=== PATIENT | male | born 1990 | race Caucasian/White ===

== ENCOUNTER 2018-07-29 04:47 | Inpatient (IN) | payer OTHER ==
[2018-07-29] MEDS ORDERED: SODIUM CHLORIDE 0.9% 1,000 ML IV STA ×2 (04:48→04:56)
--- NOTE | 2018-07-29 04:49 | ED ---
Overdose HPI - General Stated Complaint: overdose Time Seen by Provider: 07/29/18 04:48 - History of Present Illness Initial Comments: Adonis Is a 28-year-old male who presents to the emergency department today via EMS for evaluation of possible overdose and possible seizure. On initial arrival the patient is confused, unable to provide any significant history. Patient's girlfriend at bedside states that his mother gave him a bottle of pills and advised them that it was similar to Motrin. Patient was complaining of a toothache so he took a few of these, she is uncertain how many he took but he reported taking a handful. Girlfriend reports that during the night she noted that he was shaking, she states that he has a history of nightmares and tends to move a lot of sleep so she didn't think much of it. She reports that she then noticed that he felt very hot was again shaking, she tried taking them but couldn't wake him up. She was concerned he may be having a seizure. She reports that he then woke and sat but fell off in the bed striking his face on the door frame. She then called 911 with concern that he had been seizing. She was able to provide EMS personnel with the bottle of pills which she had been taking which turned out to be extended release bupropion 150 mg. - Related Data Allergies Allergy/AdvReac Type Severity Reaction Status Date / Time No Known Allergies Allergy Verified 07/29/18 05:23 Review of Systems ROS Statement: Those systems with pertinent positive or pertinent negative responses have been documented in the HPI. ROS Other: All systems not noted in ROS Statement are negative. Limitations: ROS unobtainable due to patients medical condition General Exam - General Exam Comments Initial Comments: GENERAL: Patient appears postictal, is confused, laceration to the nose, blood in the oropharynx HENT: Laceration to nasal bridge Poor dentition, evidence of tongue biting, dried blood in the oropharynx EYES: Pupils equal round reactive to light, 5 mm bilaterally PULMONARY: Tachypnea CARDIOVASCULAR: Tachycardic regular ABDOMEN: Soft and nontender with normal bowel sounds. SKIN: Skin is clear with no lesions or rashes and otherwise unremarkable. NEUROLOGIC: Confused, tonic clinic seizure activity noted upon arrival MUSCULOSKELETAL: Normal extremities with adequate strength and full range of motion. No lower extremity swelling or edema. No calf tenderness. LYMPHATICS: No significant lymphadenopathy is noted PSYCHIATRIC: Normal psychiatric evaluation. Limitations: no limitations Course Vital Signs 07/29/18 07/29/18 05:04 05:56 Temperature 97.8 F Pulse Rate 133 H 128 H Respiratory 24 20 Rate Blood Pressure 142/64 120/58 O2 Sat by Pulse 96 99 Oximetry Medical Decision Making - Medical Decision Making The patient was seen and evaluated upon arrival, patient is confused, appears postictal, physical exam consistent with seizure with tongue biting, in addition patient has a laceration to his face and sent for Wellbutrin overdose Patient had tonic clonic seizure upon arrival, seizure lasted approximately 30 seconds and resolved IV ativan was given to prevent further seizure activity Labs and imaging were ordered Considering the patient has facial injury CT of the head and face were ordered Patient has a laceration, uncertain of his history, tetanus vaccination was ordered Labs were reviewed, leukocytosis, lactic acidosis consistent with recent seizure Patient care was discussed with poison control who recommended electrolyte optimization, every 4 hour EKG and BMPs, benzos for seizures patient care was discussed with Dr. Matthews and who agrees with plan for admission to the ICU for close monitoring Patient care was discussed with Dr. Frances who accepts the medical admission - Lab Data Result diagrams: 07/29/18 05:00 07/29/18 05:00 Lab Results 07/29/18 07/29/18 07/29/18 Range/Units 05:00 05:00 05:00 WBC 17.9 H (3.8-10.6) k/uL RBC 5.37 (4.30-5.90) m/uL Hgb 15.3 (13.0-17.5) gm/dL Hct 47.5 (39.0-53.0) % MCV 88.5 (80.0-100.0) fL MCH 28.4 (25.0-35.0) pg MCHC 32.1 (31.0-37.0) g/dL RDW 12.6 (11.5-15.5) % Plt Count 316 (150-450) k/uL Neutrophils % 75 % Lymphocytes % 15 % Monocytes % 6 % Eosinophils % 1 % Basophils % 1 % Neutrophils # 13.4 H (1.3-7.7) k/uL Lymphocytes # 2.7 (1.0-4.8) k/uL Monocytes # 1.1 H (0-1.0) k/uL Eosinophils # 0.3 (0-0.7) k/uL Basophils # 0.1 (0-0.2) k/uL PT 10.5 (9.0-12.0) sec INR 1.1 (<1.2) APTT 22.6 (22.0-30.0) sec Sodium 145 (137-145) mmol/L Potassium 3.9 (3.5-5.1) mmol/L Chloride 109 H (98-107) mmol/L Carbon Dioxide 12 L (22-30) mmol/L Anion Gap 24 mmol/L BUN 17 (9-20) mg/dL Creatinine 1.21 (0.66-1.25) mg/dL Est GFR (CKD-EPI)AfAm >90 (>60 ml/min/1.73 sqM) Est GFR (CKD-EPI)NonAf 81 (>60 ml/min/1.73 sqM) Glucose 122 H (74-99) mg/dL Plasma Lactic Acid [place] (0.7-2.0) mmol/L Calcium 9.7 (8.4-10.2) mg/dL Magnesium (1.6-2.3) mg/dL Total Bilirubin 0.5 (0.2-1.3) mg/dL AST 35 (17-59) U/L ALT 30 (21-72) U/L Alkaline Phosphatase 62 (38-126) U/L Creatine Kinase (55-170) U/L Troponin I (0.000-0.034) ng/mL Total Protein 7.6 (6.3-8.2) g/dL Albumin 4.7 (3.5-5.0) g/dL Urine Color Urine Appearance (Clear) Urine pH (5.0-8.0) Ur Specific [place] (1.001-1.035) Urine Protein (Negative) Urine Glucose (UA) (Negative) Urine Ketones (Negative) Urine Blood (Negative) Urine Nitrite (Negative) Urine Bilirubin (Negative) Urine Urobilinogen (<2.0) mg/dL Ur Leukocyte Esterase (Negative) Salicylates <1.0 mg/dL Urine Opiates Screen (NotDetected) Ur Oxycodone Screen (NotDetected) Urine Methadone Screen (NotDetected) Ur Propoxyphene Screen (NotDetected) Acetaminophen <10.0 ug/mL Ur Barbiturates Screen (NotDetected) U Tricyclic Antidepress (NotDetected) Ur Phencyclidine Scrn (NotDetected) Ur Amphetamines Screen (NotDetected) U Methamphetamines Scrn (NotDetected) U Benzodiazepines Scrn (NotDetected) Urine Cocaine Screen (NotDetected) U Marijuana (THC) Screen (NotDetected) Serum Alcohol <10 mg/dL 07/29/18 07/29/18 07/29/18 Range/Units 05:00 05:00 05:00 WBC (3.8-10.6) k/uL RBC (4.30-5.90) m/uL Hgb (13.0-17.5) gm/dL Hct (39.0-53.0) % MCV (80.0-100.0) fL MCH (25.0-35.0) pg MCHC (31.0-37.0) g/dL RDW (11.5-15.5) % Plt Count (150-450) k/uL Neutrophils % % Lymphocytes % % Monocytes % % Eosinophils % % Basophils % % Neutrophils # (1.3-7.7) k/uL Lymphocytes # (1.0-4.8) k/uL Monocytes # (0-1.0) k/uL Eosinophils # (0-0.7) k/uL Basophils # (0-0.2) k/uL PT (9.0-12.0) sec INR (<1.2) APTT (22.0-30.0) sec Sodium (137-145) mmol/L Potassium (3.5-5.1) mmol/L Chloride (98-107) mmol/L Carbon Dioxide (22-30) mmol/L Anion Gap mmol/L BUN (9-20) mg/dL Creatinine (0.66-1.25) mg/dL Est GFR (CKD-EPI)AfAm (>60 ml/min/1.73 sqM) Est GFR (CKD-EPI)NonAf (>60 ml/min/1.73 sqM) Glucose (74-99) mg/dL Plasma Lactic Acid [place] 13.9 H* (0.7-2.0) mmol/L Calcium (8.4-10.2) mg/dL Magnesium 2.0 (1.6-2.3) mg/dL Total Bilirubin (0.2-1.3) mg/dL AST (17-59) U/L ALT (21-72) U/L Alkaline Phosphatase (38-126) U/L Creatine Kinase 401 H (55-170) U/L Troponin I <0.012 (0.000-0.034) ng/mL Total Protein (6.3-8.2) g/dL Albumin (3.5-5.0) g/dL Urine Color Urine Appearance (Clear) Urine pH (5.0-8.0) Ur Specific [place] (1.001-1.035) Urine Protein (Negative) Urine Glucose (UA) (Negative) Urine Ketones (Negative) Urine Blood (Negative) Urine Nitrite (Negative) Urine Bilirubin (Negative) Urine Urobilinogen (<2.0) mg/dL Ur Leukocyte Esterase (Negative) Salicylates mg/dL Urine Opiates Screen (NotDetected) Ur Oxycodone Screen (NotDetected) Urine Methadone Screen (NotDetected) Ur Propoxyphene Screen (NotDetected) Acetaminophen ug/mL Ur Barbiturates Screen (NotDetected) U Tricyclic Antidepress (NotDetected) Ur Phencyclidine Scrn (NotDetected) Ur Amphetamines Screen (NotDetected) U Methamphetamines Scrn (NotDetected) U Benzodiazepines Scrn (NotDetected) Urine Cocaine Screen (NotDetected) U Marijuana (THC) Screen (NotDetected) Serum Alcohol mg/dL 07/29/18 07/29/18 Range/Units 05:30 05:30 WBC (3.8-10.6) k/uL RBC (4.30-5.90) m/uL Hgb (13.0-17.5) gm/dL Hct (39.0-53.0) % MCV (80.0-100.0) fL MCH (25.0-35.0) pg MCHC (31.0-37.0) g/dL RDW (11.5-15.5) % Plt Count (150-450) k/uL Neutrophils % % Lymphocytes % % Monocytes % % Eosinophils % % Basophils % % Neutrophils # (1.3-7.7) k/uL Lymphocytes # (1.0-4.8) k/uL Monocytes # (0-1.0) k/uL Eosinophils # (0-0.7) k/uL Basophils # (0-0.2) k/uL PT (9.0-12.0) sec INR (<1.2) APTT (22.0-30.0) sec Sodium (137-145) mmol/L Potassium (3.5-5.1) mmol/L Chloride (98-107) mmol/L Carbon Dioxide (22-30) mmol/L Anion Gap mmol/L BUN (9-20) mg/dL Creatinine (0.66-1.25) mg/dL Est GFR (CKD-EPI)AfAm (>60 ml/min/1.73 sqM) Est GFR (CKD-EPI)NonAf (>60 ml/min/1.73 sqM) Glucose (74-99) mg/dL Plasma Lactic Acid [place] (0.7-2.0) mmol/L Calcium (8.4-10.2) mg/dL Magnesium (1.6-2.3) mg/dL Total Bilirubin (0.2-1.3) mg/dL AST (17-59) U/L ALT (21-72) U/L Alkaline Phosphatase (38-126) U/L Creatine Kinase (55-170) U/L Troponin I (0.000-0.034) ng/mL Total Protein (6.3-8.2) g/dL Albumin (3.5-5.0) g/dL Urine Color Yellow Urine Appearance Clear (Clear) Urine pH 5.5 (5.0-8.0) Ur Specific [place] 1.020 (1.001-1.035) Urine Protein Trace H (Negative) Urine Glucose (UA) Negative (Negative) Urine Ketones Trace H (Negative) Urine Blood Negative (Negative) Urine Nitrite Negative (Negative) Urine Bilirubin Negative (Negative) Urine Urobilinogen <2.0 (<2.0) mg/dL Ur Leukocyte Esterase Negative (Negative) Salicylates mg/dL Urine Opiates Screen Not Detected (NotDetected) Ur Oxycodone Screen Not Detected (NotDetected) Urine Methadone Screen Not Detected (NotDetected) Ur Propoxyphene Screen Not Detected (NotDetected) Acetaminophen ug/mL Ur Barbiturates Screen Not Detected (NotDetected) U Tricyclic Antidepress Not Detected (NotDetected) Ur Phencyclidine Scrn Not Detected (NotDetected) Ur Amphetamines Screen Not Detected (NotDetected) U Methamphetamines Scrn Not Detected (NotDetected) U Benzodiazepines Scrn Not Detected (NotDetected) Urine Cocaine Screen Not Detected (NotDetected) U Marijuana (THC) Screen Not Detected (NotDetected) Serum Alcohol mg/dL - EKG Data EKG Comments: EKG obtained at 5 AM, rate is 151, rhythm is sinus tachycardia, ME 122, QRS 104 , QTC is prolonged at 538. No evidence of acute ischemia or infarction. Critical Care Time Critical Care Time: Yes Total Critical Care Time: 30 Critical Care Time: Critical Care Critical care time was exclusive of separately billable procedures and treating other patients and teaching time. Critical care was necessary to treat or prevent imminent or life-threatening deterioration. Critical care was time spent personally by me on the following activities: development of treatment plan with patient or surrogate, discussions with consultants, discussions with primary provider, evaluation of patient's response to treatment, examination of patient, obtaining history from patient or surrogate, ordering and performing treatments and interventions, ordering and review of laboratory studies, ordering and review of radiographic studies, pulse oximetry, re-evaluation of patient's condition and review of old charts. Disposition Clinical Impression: Bupropion overdose, Seizure, Lactic acidosis Disposition: ADMITTED IP TO THIS HOSP
[2018-07-29] MEDS ORDERED: DIPH,PERTUS(ACELL)TETVAC-LF 0.5 ML VIAL IM ONE (04:57)
[2018-07-29] MEDS ORDERED: LORazepam 2 MG/ML INJ IV STA (04:57)
[2018-07-29] MEDS ORDERED: ONDANSETRON 4 MG/2 ML VIAL IVP STA (05:06)
[2018-07-29 05:13] LABS: Basophils # (A) 0.1 k/uL (0-0.2); Basophils % (A) 1 %; Eosinophils # (A) 0.3 k/uL (0-0.7); Eosinophils % (A) 1 %; HCT 47.5 % (39.0-53.0); HGB 15.3 gm/dL (13.0-17.5); Lymphocytes # (A) 2.7 k/uL (1.0-4.8); Lymphocytes % (A) 15 %; MCH 28.4 pg (25.0-35.0); MCHC 32.1 g/dL (31.0-37.0); MCV 88.5 fL (80.0-100.0); Mean Platelet Volume 7.3; Monocytes # (A) 1.1 k/uL (0-1.0); Monocytes % (A) 6 %; Neutrophils # (A) 13.4 k/uL (1.3-7.7); Neutrophils % (A) 75 %; Platelet Count 316 k/uL (150-450); RBC 5.37 m/uL (4.30-5.90); RDW 12.6 % (11.5-15.5); WBC 17.9 k/uL (3.8-10.6)
[2018-07-29 05:22] LABS: INR 1.1 (<1.2); Partial Thromboplastin Time 22.6 sec (22.0-30.0); Prothrombin Time 10.5 sec (9.0-12.0)
[2018-07-29 05:24] LABS: ALT 30 U/L (21-72); AST 35 U/L (17-59); Acetaminophen <10.0 ug/mL; Albumin 4.7 g/dL (3.5-5.0); Alcohol <10 mg/dL; Alkaline Phosphatase 62 U/L (38-126); Anion Gap 24 mmol/L; Blood Urea Nitrogen 17 mg/dL (9-20); Calcium 9.7 mg/dL (8.4-10.2); Carbon Dioxide 12 mmol/L (22-30); Chloride 109 mmol/L (98-107); Glucose 122 mg/dL (74-99); Potassium 3.9 mmol/L (3.5-5.1); Salicylate <1.0 mg/dL; Sodium 145 mmol/L (137-145); Total Bilirubin 0.5 mg/dL (0.2-1.3); Total Protein 7.6 g/dL (6.3-8.2)
[2018-07-29 05:47] LABS: Amphetamine Screen,Urine Not Detected (NotDetected); Barbiturate Screen,Urine Not Detected (NotDetected); Benzodiazepines Screen,Urine Not Detected (NotDetected); Cocaine Screen,Urine Not Detected (NotDetected); Methadone Screen, Urine Not Detected (NotDetected); Opiate Screen,Urine Not Detected (NotDetected); Oxycodone Screen, Urine Not Detected (NotDetected); Phencyclidine Screen,Urine Not Detected (NotDetected); Tricyclic Antidepressant,Urine Not Detected (NotDetected); Urn Cannabinoid Scrn Not Detected (NotDetected)
--- NOTE | 2018-07-29 06:05 | CT ---
EXAMINATION TYPE: CT brain rianna zamora DATE OF EXAM: 07/29/2018 COMPARISON: None HISTORY: overdose CT DLP: 1615.5 mGycm Automated exposure control for dose reduction was used. TECHNIQUE: CT scan of the head and cervical spine are performed without contrast. FINDINGS: Ventricles and sulci appear normal. There is no mass effect nor midline shift. There is n o sign of intracranial hemorrhage. The calvarium is intact. There is mucosal thickening right maxilla ry sinus. The cervical vertebra have normal alignment. Posterior elements are intact. Facet joints are intact. Disc spaces are fairly well-maintained. There is no evidence of a fracture. Skull base is intact. The re is mild anterior spurring at C6-7. IMPRESSION: Negative CT scan of the brain. Minimal right maxillary sinusitis. Negative CT scan cervical spine.
--- NOTE | 2018-07-29 06:08 | CT ---
EXAMINATION TYPE: CT facial bones wo con DATE OF EXAM: 07/29/2018 COMPARISON: None HISTORY: overdose CT DLP: 704.9 mGycm Automated exposure control for dose reduction was used. TECHNIQUE: CT scan of the sinuses is performed without contrast, axial images are obtained, coronal r eformatted images are also reviewed. FINDINGS: Orbital margins are intact. There is no evidence of blowout fracture. There is mucosal thic kening in the right maxillary sinus. There is mucosal thickening at the right ostiomeatal complex. Th ere is pneumatization of the right middle nasal turbinate. The maxilla is intact. Mandibular ring felix ears intact. Temporomandibular joints appear normal. Zygomatic arches appear normal. Nasal bone is in tact. There is no evidence of orbital mass. IMPRESSION: Right maxillary sinusitis. Otherwise negative exam. No fracture.
[2018-07-29] MEDS ORDERED: NALOXONE 0.4 MG/ML 1 ML VIAL IV PRN (06:31)
[2018-07-29] MEDS: SODIUM CHLORIDE 0.9% 1,000 ML IV SCH ×3 (06:59→22:23)
[2018-07-29 07:00] LABS: Appearance,Urine Clear (Clear); Bilirubin,Urine Negative (Negative); Blood,Urine Negative (Negative); Color,Urine Yellow; Glucose,Urine (UA) Negative (Negative); Ketones,Urine Trace (Negative); Leukocyte Esterase,Urine Negative (Negative); Nitrite,Urine Negative (Negative); PH, Urine 5.5 (5.0-8.0); Protein,Urine Trace (Negative); Urobilinogen,Urine <2.0 mg/dL (<2.0)
[2018-07-29] MEDS ORDERED: LORazepam 2 MG/ML INJ IV PRN (07:23)
[2018-07-29 07:31] LABS: VBG PH 7.32 (7.31-7.41)
[2018-07-29 10:26] LABS: Anion Gap 8 mmol/L; Blood Urea Nitrogen 15 mg/dL (9-20); Calcium 8.3 mg/dL (8.4-10.2); Carbon Dioxide 22 mmol/L (22-30); Chloride 111 mmol/L (98-107); Glucose 107 mg/dL (74-99); Magnesium 1.8 mg/dL (1.6-2.3); Potassium 4.1 mmol/L (3.5-5.1); Sodium 141 mmol/L (137-145)
--- NOTE | 2018-07-29 12:15 | P.HPIM ---
History of Present Illness H&P Date: 07/29/18 Adonis Campbell is a 28-year-old male who was brought in to [facility] emergency room via EMS after having 2 seizures at home. Patient was seen and examined in the emergency room he is lying comfortably in bed, he has seizure precaution pads, he is able to answer questions appropriately however his speech is somewhat muffled. His significant other and his mother are at the bedside and they helped complete the history of the present illness. Apparently patient is having a tooth pain, he went to sleep last night at home, he woke up in the middle of the night complaining of severe pain in his stools, he'll reached for a bottle of medication which he thought was Motrin and took a fistful of pills. Patient started having episodes of vomiting and he was noticed by his girlfriend to have an episode of jerking movements that lasted about 1 minute. She called EMS and before EMS came patient had an alveolar episode of unresponsiveness with jerking movements lasting 1-2 minutes, he was brought into emergency room and apparently he had a third episode in the emergency room, the episode in the ER was described as a tonic-clonic seizure lasting about 30 seconds. In the emergency room patient was evaluated he was given IV Ativan he had evidence of tachycardia he also had QTC prolongation he had elevated white blood count and elevated lactic acid he was started on IV fluid he had episodes of confusion and muffled speech suggestive of post ictal. He also had evidence of tongue biting. Past medical history patient denies any significant past medical history, he denies having any seizures in the past he denies having any stroke or any neurological abnormality in the past, he works as a heavy duty mechanic. Social history patient lives with his girlfriend, he smokes half a pack to 1 pack per day, he used to smoke marijuana heavily, mother and states that he quit smoking marijuana about 6 weeks ago, he also used methamphetamine in the past. Past surgical history patient denies any previous history of any surgery in the past. Past Medical History Past Medical History: No Reported History, Unable to Obtain History of Any Multi-Drug Resistant Organisms: Unobtainable Past Surgical History: Unable to Obtain Past Psychological History: Unable to Obtain Smoking Status: Current every day smoker Past Alcohol Use History: Unable to Obtain, Occasional, Rare Past Drug Use History: Unable to Obtain, Marijuana, Methamphetamine Medications and Allergies Home Medications Medication Instructions Recorded Confirmed Type No Known Home Medications 07/29/18 07/29/18 History Allergies Allergy/AdvReac Type Severity Reaction Status Date / Time No Known Allergies Allergy Verified 07/29/18 10:34 Physical Exam Vitals: Vital Signs Temp Pulse Resp BP Pulse Ox 07/29/18 11:48 98.4 F 121 H 16 136/70 98 07/29/18 09:59 122 H 18 131/65 100 07/29/18 09:03 98.5 F 122 H 18 127/63 97 07/29/18 07:43 121 H 20 124/64 97 07/29/18 07:07 124 H 22 129/59 98 07/29/18 05:56 128 H 20 120/58 99 07/29/18 05:04 97.8 F 133 H 24 142/64 96 Intake and Output 07/28/18 07/29/18 07/29/18 22:59 06:59 14:59 Other: Weight 81.647 kg In general patient is alert slightly confused but answering questions appropriately his speech is somewhat muffled HEENT there is some bruising and laceration was scabbing on the nose Neck is supple no JVD no goiter no lymphadenopathy Chest exam is clear to auscultation no crackles no wheezing Cardiac exam reveals regular heart sounds S1 and S2 no gallops no murmurs there is tachycardia at rest heart rate is 125 Abdomen is soft nontender no organomegaly with normal bowel sounds Extremity exam reveals no edema no cyanosis or clubbing Neurological examination reveals no gross focal deficit at this time Results CBC & Chem 7: 07/29/18 05:00 07/29/18 09:57 Labs: Abnormal Lab Results - Last 24 Hours (Table) 07/29/18 07/29/18 07/29/18 Range/Units 05:00 05:00 05:00 WBC 17.9 H (3.8-10.6) k/uL Neutrophils # 13.4 H (1.3-7.7) k/uL Monocytes # 1.1 H (0-1.0) k/uL VBG HCO3 (24-28) mmol/L Chloride 109 H (98-107) mmol/L Carbon Dioxide 12 L (22-30) mmol/L Glucose 122 H (74-99) mg/dL Plasma Lactic Acid [place] 13.9 H* (0.7-2.0) mmol/L Calcium (8.4-10.2) mg/dL Creatine Kinase (55-170) U/L Urine Protein (Negative) Urine Ketones (Negative) 07/29/18 07/29/18 07/29/18 Range/Units 05:00 05:30 07:11 WBC (3.8-10.6) k/uL Neutrophils # (1.3-7.7) k/uL Monocytes # (0-1.0) k/uL VBG HCO3 21 L (24-28) mmol/L Chloride (98-107) mmol/L Carbon Dioxide (22-30) mmol/L Glucose (74-99) mg/dL Plasma Lactic Acid [place] (0.7-2.0) mmol/L Calcium (8.4-10.2) mg/dL Creatine Kinase 401 H (55-170) U/L Urine Protein Trace H (Negative) Urine Ketones Trace H (Negative) 07/29/18 Range/Units 09:57 WBC (3.8-10.6) k/uL Neutrophils # (1.3-7.7) k/uL Monocytes # (0-1.0) k/uL VBG HCO3 (24-28) mmol/L Chloride 111 H (98-107) mmol/L Carbon Dioxide (22-30) mmol/L Glucose 107 H (74-99) mg/dL Plasma Lactic Acid [place] (0.7-2.0) mmol/L Calcium 8.3 L (8.4-10.2) mg/dL Creatine Kinase (55-170) U/L Urine Protein (Negative) Urine Ketones (Negative) Assessment and Plan Plan: #1 seizure activity in U onset, likely related to bupropion overdose #2 Bupropion overdose, unintentional per patient, he thought he was taking Motrin for tooth pain #3 tooth abcess with pain #4 tobacco abuse patient was counseled to quit #5 previous history of marijuana and methamphetamine use in the past #6 tachycardia #7 lactic acidosis #8 leukocytosis At this time continue IV fluid continue to monitor closely with seizure precautions obtain labs every 4 hours to evaluate electrolytes Neurology and critical care auscultation requested
--- NOTE | 2018-07-29 13:30 | P.CNPUL ---
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 Patient apparently took a handful of Wellbutrin 150 mg tablets, thinking that he was taking Motrin for toothache. Patient did not read the label and about 6 hours after patient had a witnessed seizure by his . Shortly after he had another seizure, EMS brought in the patient to the ER, and upon arrival had another seizure , noted to be a tonic-clonic seizure lasted about 30 seconds , patient was given IV Ativan. Patient was also noted to have some agitation, restlessness, tachycardia, prolonged QTc interval, and he had 1 or 2 episodes of nausea and vomiting while at home. Patient was evaluated by the ER physician , placed on seizure precautions, however it was too late to use activated charcoal on the patient, by the time he arrived to the ER, he was at least 8 hours from the initial ingestion of his Wellbutrin. I saw the patient in the ER , seems to be a bit restless, agitated, tachycardic, but in no form of respiratory distress. His mother and his girlfriend were both at bedside. Patient is presently asymptomatic, he does have a smoking history of marijuana, and had previous history of methamphetamine abuse. Patient lives with his girlfriend, no previous major illnesses. During my evaluation, denied any headache, no blurred vision, no previous history of seizure disorder, denies any nausea vomiting abdominal pain, no melena, no hematemesis. No dysuria and no frequency no urgency. Review of Systems 14 point review of systems were obtained, please refer to pertinent positives in HPI, otherwise remaining systems are negative Past Medical History Past Medical History: No Reported History, Unable to Obtain Additional Past Medical History / Comment(s): No previous significant medical illnesses. History of Any Multi-Drug Resistant Organisms: Unobtainable Past Surgical History: Unable to Obtain Past Psychological History: Unable to Obtain Smoking Status: Current every day smoker Past Alcohol Use History: Unable to Obtain, Occasional, Rare Past Drug Use History: Unable to Obtain, Marijuana, Methamphetamine Medications and Allergies Home Medications Medication Instructions Recorded Confirmed Type No Known Home Medications 07/29/18 07/29/18 History Allergies Allergy/AdvReac Type Severity Reaction Status Date / Time No Known Allergies Allergy Verified 07/29/18 10:34 Physical Exam Vitals: Vital Signs Temp Pulse Resp BP Pulse Ox 07/29/18 12:57 98.8 F 119 H 16 129/81 98 07/29/18 11:48 98.4 F 121 H 16 136/70 98 07/29/18 09:59 122 H 18 131/65 100 07/29/18 09:03 98.5 F 122 H 18 127/63 97 07/29/18 07:43 121 H 20 124/64 97 07/29/18 07:07 124 H 22 129/59 98 07/29/18 05:56 128 H 20 120/58 99 07/29/18 05:04 97.8 F 133 H 24 142/64 96 Intake and Output 07/28/18 07/29/18 07/29/18 22:59 06:59 14:59 Other: Weight 81.647 kg Gen. exam: Revealed a 28-year-old white male, slightly anxious, in no form of respiratory distress. Answers questions but very slow. Head: Small abrasion noted on the nose. Related to hitting the table while he was vomiting. HEENT PERRLA, EOMI, no icterus. Neck supple, no neck masses, no JVD, no stridor. Chest exam is clear throughout, no crackles, no rhonchi, no wheezes. Cardiac exam reveals tachycardia, rate of 123/m, normal S1 and S2 no gallops no murmurs t Abdomen is soft nontender no organomegaly with normal bowel sounds Extremity exam reveals no edema no cyanosis or clubbing, good pulses bilaterally. Neurological examination reveals no gross focal deficit at this time Psychiatric: Blunted affect, depressed mood, slow mentation, Lymphatics: No lymphadenopathy. Results - Laboratory Findings CBC and BMP: 07/29/18 05:00 07/29/18 09:57 PT/INR, D-dimer PT 10.5 sec (9.0-12.0) 07/29/18 05:00 INR 1.1 (<1.2) 07/29/18 05:00 Abnormal lab findings: Abnormal Labs 07/29/18 07/29/18 07/29/18 05:00 05:00 05:00 WBC 17.9 H Neutrophils # 13.4 H Monocytes # 1.1 H VBG HCO3 Chloride 109 H Carbon Dioxide 12 L Glucose 122 H Plasma Lactic Acid Leighton 13.9 H* Calcium Creatine Kinase Urine Protein Urine Ketones 07/29/18 07/29/18 07/29/18 05:00 05:30 07:11 WBC Neutrophils # Monocytes # VBG HCO3 21 L Chloride Carbon Dioxide Glucose Plasma Lactic Acid Leighton Calcium Creatine Kinase 401 H Urine Protein Trace H Urine Ketones Trace H 07/29/18 09:57 WBC Neutrophils # Monocytes # VBG HCO3 Chloride 111 H Carbon Dioxide Glucose 107 H Plasma Lactic Acid Leighton Calcium 8.3 L Creatine Kinase Urine Protein Urine Ketones - Diagnostic Findings Additional studies: CT of facial bone showed right maxillary sinusitis, no fracture. CT cervical spine is negative. Assessment and Plan Assessment: Impression: 1 acute Wellbutrin overdose, nonintentional. 2 acute seizure secondary to Wellbutrin overdose. 3 tobacco dependence syndrome 4 lactic acidosis secondary to seizures 5 remote history of marijuana and methamphetamine abuse. Recommendation: Continue present supportive care measures, continue to monitor in the ICU continue seizure precautions, use benzodiazepines for seizure control if any. Patient will not require long-term treatment for seizures since based on the clinical history this is clearly related to Wellbutrin overdose. Will follow in the ICU, and we'll continue seizure precautions. Time with Patient: Greater than 30
[2018-07-29 20:06] LABS: Glucose,Whole Blood 108 mg/dL (75-99)
[2018-07-29 21:30] VITALS: BMI 24.5
[2018-07-30] MEDS: HEPARIN SODIUM,PORCINE 5,000 UNIT/ML 1 ML VIAL SQ SCH ×3 (00:23→15:40)
[2018-07-30 03:47] LABS: Basophils # (A) 0.1 k/uL (0-0.2); Basophils % (A) 1 %; Eosinophils # (A) 0.1 k/uL (0-0.7); Eosinophils % (A) 1 %; Lymphocytes # (A) 1.9 k/uL (1.0-4.8); Lymphocytes % (A) 20 %; MCH 28.6 pg (25.0-35.0); MCHC 33.5 g/dL (31.0-37.0); MCV 85.5 fL (80.0-100.0); Monocytes # (A) 0.5 k/uL (0-1.0); Monocytes % (A) 5 %; Neutrophils % (A) 71 %; Platelet Count 204 k/uL (150-450); RDW 12.6 % (11.5-15.5); WBC 9.8 k/uL (3.8-10.6)
[2018-07-30 03:48] LABS: HGB 11.7 gm/dL (13.0-17.5)
[2018-07-30 03:56] LABS: Anion Gap 6 mmol/L; Blood Urea Nitrogen 7 mg/dL (9-20); Calcium 8.4 mg/dL (8.4-10.2); Carbon Dioxide 23 mmol/L (22-30); Chloride 110 mmol/L (98-107); Glucose 105 mg/dL (74-99); Magnesium 1.8 mg/dL (1.6-2.3); Phosphorus 3.5 mg/dL (2.5-4.5); Potassium 3.4 mmol/L (3.5-5.1); Sodium 139 mmol/L (137-145)
[2018-07-30] MEDS: SODIUM CHLORIDE 0.9% 1,000 ML IV SCH ×3 (04:40→15:40)
[2018-07-30] MEDS: POTASSIUM CHLORIDE ER 20 MEQ TAB.ER PO SCH ×2 (04:49→06:01)
[2018-07-30] MEDS: MAGNESIUM SULFATE-D5W PMX 1 GM in DEXTROSE/WATER 1 100ML.BAG IVPB SCH ×2 (04:49→06:01)
--- NOTE | 2018-07-30 05:52 | XR ---
EXAMINATION TYPE: XR chest 1V portable DATE OF EXAM: 07/30/2018 HISTORY: Aspiration. REFERENCE: None. FINDINGS: The lungs are clear. Pleural space are clear. The heart is not enlarged. IMPRESSION: NORMAL CHEST.
[2018-07-30] MEDS ORDERED: PANTOPRAZOLE 40 MG TABLET PO SCH (07:30)
--- NOTE | 2018-07-30 09:28 | P.CNNES ---
History of Present Illness Consult date: 07/29/18 Reason for Consult: Patient admitted with drug overdose and seizures. History of Present Illness: This patient is a 28-year-old right-handed white male who was brought into the emergency room at [facility] after having 2 seizures at home. The patient was transported by EMS to the emergency room at [facility] where he was seen in the ER by Dr. Overton. The patient was sent for a computed tomography scan of the brain and cervical spine from the emergency room and both studies came back negative for any acute changes. There was minimal right maxillary sinusitis noted. The patient then had a third seizure in the emergency room that lasted only 2 minutes in duration. He was given Ativan and was admitted to the intensive care unit for close monitoring. On further review of his medical history from the emergency room and apparently the patient had taken several pills of Wellbutrin which were 150 mg each for treatment of pain. Patient states he head severe tooth pain and his mother told him that he should take Motrin. Apparently it is unclear why he had accidentally taken the Wellbutrin instead of Motrin for treatment of his condition. His mother was not available today in the intensive care unit to clarify these points. The patient was felt to have taken at least a handful of Wellbutrin which likely caused him to have secondary seizures. He was evaluated in the emergency room by Dr. Overton who had contacted poison control as well for his case. The patient was transferred to the intensive care unit for close monitoring. He was seen today in the ICU and appears to be making good progress. He denies any previous history of seizures. He is not clear as to why he had taken Wellbutrin mistaking it for Motrin. We reviewed the results of his CAT scan of the brain and cervical spine with him today in detail. Overall he seems to still be slightly confused following admission to the ICU. We have explained [place] driving law to the patient in detail. He is aware that he cannot drive in the state of [place] for a period of 6 months following his last seizure. Patient states he is aware of this restriction at this time. We will continue close neurological follow-up for the patient during this admission. His overall prognosis at this time remains very guarded. Neurology is now been consulted for further evaluation and recommendations. Review of Systems Constitutional: Denies chills, Denies fever Eyes: denies blurred vision, denies pain Ears, nose, mouth and throat: Denies headache, Denies sore throat Cardiovascular: Denies chest pain, Denies shortness of breath Respiratory: Denies cough Gastrointestinal: Denies abdominal pain, Denies diarrhea, Denies nausea, Denies vomiting Musculoskeletal: Denies myalgias Integumentary: Denies pruritus, Denies rash Neurological: Reports change in mentation, Reports confusion, Reports memory loss, Denies numbness, Denies weakness Psychiatric: Denies anxiety, Denies depression Endocrine: Denies fatigue, Denies weight change Past Medical History Past Medical History: No Reported History, Unable to Obtain Additional Past Medical History / Comment(s): No previous significant medical illnesses. History of Any Multi-Drug Resistant Organisms: Unobtainable Past Surgical History: Unable to Obtain Past Psychological History: Unable to Obtain Smoking Status: Current every day smoker Past Alcohol Use History: Unable to Obtain, Occasional, Rare Past Drug Use History: Unable to Obtain, Marijuana, Methamphetamine Medications and Allergies Home Medications Medication Instructions Recorded Confirmed Type No Known Home Medications 07/29/18 07/29/18 History Allergies Allergy/AdvReac Type Severity Reaction Status Date / Time No Known Allergies Allergy Verified 07/29/18 10:34 Physical Examination - Vital Signs Vital Signs: Vital Signs Temp Pulse Resp BP Pulse Ox 07/29/18 21:00 108 H 11 L 146/72 98 07/29/18 20:20 106 H 19 146/72 96 07/29/18 20:10 97.1 F L 108 H 16 146/72 98 07/29/18 19:50 111 H 16 123/69 99 07/29/18 18:46 114 H 16 130/70 99 07/29/18 17:05 117 H 16 126/78 98 07/29/18 15:51 115 H 18 136/70 98 07/29/18 14:48 98.6 F 114 H 16 141/78 98 07/29/18 12:57 98.8 F 119 H 16 129/81 98 07/29/18 11:48 98.4 F 121 H 16 136/70 98 07/29/18 09:59 122 H 18 131/65 100 07/29/18 09:03 98.5 F 122 H 18 127/63 97 07/29/18 07:43 121 H 20 124/64 97 07/29/18 07:07 124 H 22 129/59 98 07/29/18 05:56 128 H 20 120/58 99 07/29/18 05:04 97.8 F 133 H 24 142/64 96 Intake and Output 07/29/18 07/29/18 07/29/18 06:59 14:59 22:59 Intake Total 200 Output Total 425 Balance -225 Intake: IV 200 Sodium Chloride 0.9% 1, 200 000 ml @ 200 mls/hr IV . Q5H [facility] Rx#:[id number] Output: Urine 425 Other: Weight 81.647 kg - Constitutional General appearance: average body habitus, cooperative - EENT EENT: PERRL, mucous membranes moist - Respiratory Respiratory: lungs clear, normal breath sounds - Cardiovascular Cardiovascular: regular rate, normal S1, normal S2 Extremities: no peripheral edema bilaterally - Gastrointestinal Gastrointestinal: normoactive bowel sounds - Integumentary Integumentary: normal - Neurologic Cranial nerve examination: PERRL, EOMI, VFF, V1/V2/V3 grossly intact, face symmetric, tongue midline, intact gag reflex, intact corneal reflex, normal palatal elevation Speech examination: intact Sensorimotor examination: intact Motor examination - right side: 4/5: biceps, triceps, wrist flexion, wrist extension, book trimmer, hip flexors, knee extensors, dorsiflexion, toe extension (EHL) , plantarflexion Motor examination - left side: 4/5: biceps, triceps, wrist flexion, wrist extension, book trimmer, hip flexors, knee extensors, dorsiflexion, toe extension (EHL) , plantarflexion Detailed sensory examination: intact Reflex and gait examination: intact Reflexes: 1+: ankle, bicep, knee, tricep - Musculoskeletal Musculoskeletal: no pain - Psychiatric Psychiatric: mood/affect appropriate, cooperative Results - Laboratory Findings CBC and BMP: 07/30/18 03:12 07/30/18 08:05 Abnormal Lab Findings: Abnormal Labs 07/29/18 07/29/18 07/29/18 05:00 05:00 05:00 WBC 17.9 H Neutrophils # 13.4 H Monocytes # 1.1 H VBG HCO3 Chloride 109 H Carbon Dioxide 12 L Glucose 122 H POC Glucose (mg/dL) Plasma Lactic Acid Leighton 13.9 H* Calcium Creatine Kinase Urine Protein Urine Ketones 07/29/18 07/29/18 07/29/18 05:00 05:30 07:11 WBC Neutrophils # Monocytes # VBG HCO3 21 L Chloride Carbon Dioxide Glucose POC Glucose (mg/dL) Plasma Lactic Acid Leighton Calcium Creatine Kinase 401 H Urine Protein Trace H Urine Ketones Trace H 07/29/18 07/29/18 09:57 20:03 WBC Neutrophils # Monocytes # VBG HCO3 Chloride 111 H Carbon Dioxide Glucose 107 H POC Glucose (mg/dL) 108 H Plasma Lactic Acid Leighton Calcium 8.3 L Creatine Kinase Urine Protein Urine Ketones Assessment and Plan (1) New onset seizure Current Visit: Yes Status: Acute Code(s): R56.9 - UNSPECIFIED CONVULSIONS SNOMED Code(s): 34458866 (2) Bupropion overdose Current Visit: Yes Status: Acute Code(s): T43.291A - POISONING BY OTH ANTIDEPRESSANTS, ACCIDENTAL, INIT SNOMED Code(s): 914313086 (3) Acute metabolic encephalopathy Current Visit: Yes Status: Acute Code(s): G93.41 - METABOLIC ENCEPHALOPATHY SNOMED Code(s): 00921008 (4) Lactic acidosis Current Visit: Yes Status: Acute Code(s): E87.2 - ACIDOSIS SNOMED Code(s) : 46231710 Plan: This patient is a 28-year-old right-handed white male who was brought into the emergency room [facility] for evaluation of new onset seizures. The patient had suffered 2 seizures at home and a third seizure in the ER. It was found out that the patient had overdosed on Wellbutrin mistaking it for Motrin. He underwent a computed tomography scan of the brain and cervical spine which came back negative. He has had no further seizures and he was transferred to the intensive care unit today for further management. His neurological examination in the ICU is nonfocal. He does have some postictal confusion which is is slowly improving with time. It is still unclear why the patient had overdosed with Wellbutrin and the details will need to be clarified tomorrow with his mother. At this point we will continue close neurological follow-up for the patient. He has suffered a secondary seizure disorder from drug overdose. We will continue close monitoring of his condition in the ICU. [facility] is aware of his situation. His overall prognosis at this time remains guarded. We have clearly mentioned to the patient the [place] driving law which states he cannot drive in the [facility] for appeared of 6 months following his last seizure. He is aware of this restriction. We will continue to follow his progress closely in the intensive care unit. His overall prognosis at this time remains very guarded. Time with Patient: Greater than 30
--- NOTE | 2018-07-30 13:31 | P.PN ---
Subjective Progress Note Date: 07/30/18 Principal diagnosis: Acute drug overdose/toxicity/Wellbutrin. 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 Patient apparently took a handful of Wellbutrin 150 mg tablets, thinking that he was taking Motrin for toothache. Patient did not read the label and about 6 hours after patient had a witnessed seizure by his . Shortly after he had another seizure, EMS brought in the patient to the ER, and upon arrival had another seizure , noted to be a tonic-clonic seizure lasted about 30 seconds , patient was given IV Ativan. Patient was also noted to have some agitation, restlessness, tachycardia, prolonged QTc interval, and he had 1 or 2 episodes of nausea and vomiting while at home. Patient was evaluated by the ER physician , placed on seizure precautions, however it was too late to use activated charcoal on the patient, by the time he arrived to the ER, he was at least 8 hours from the initial ingestion of his Wellbutrin. I saw the patient in the ER , seems to be a bit restless, agitated, tachycardic, but in no form of respiratory distress. His mother and his girlfriend were both at bedside. Patient is presently asymptomatic, he does have a smoking history of marijuana, and had previous history of methamphetamine abuse. Patient lives with his girlfriend, no previous major illnesses. During my evaluation, denied any headache, no blurred vision, no previous history of seizure disorder, denies any nausea vomiting abdominal pain, no melena, no hematemesis. No dysuria and no frequency no urgency. Patient was reevaluated today in the ICU on 07/30/2018, he is doing great. Patient is asymptomatic, he is asking to be discharged home. No evidence of any seizure activity over the last 24 hours. Hemodynamically the patient is stable, and no cardiac arrhythmia noted while inpatient. Labs were noted to be normal. Potassium is a bit low at 3.4. At is being corrected and it went up to 4.0. Chest x-ray this morning was noted to be normal. Patient denies any headache no blurred vision no dizziness, no cough no wheezing. Objective - Vital Signs Vital signs: Vital Signs Temp 98.0 F 07/30/18 12:04 Pulse 86 07/30/18 12:04 Resp 13 07/30/18 12:04 BP 125/80 07/30/18 12:04 Pulse Ox 98 07/30/18 12:04 Intake & Output 07/29/18 07/30/18 07/30/18 18:59 06:59 18:59 Intake Total 1475 875 Output Total 1750 2725 Balance -275 -1850 Weight 77.6 kg 78.3 kg Intake: IV 1475 875 Magnesium Sulfate-D5w Pmx 200 1 gm In Dextrose/Water 1 100ml.bag @ 100 mls/hr IVPB Q1H [facility] Rx#: [id number] Sodium Chloride 0.9% 1, 875 875 000 ml @ 125 mls/hr IV . Q8H [facility] Rx#:[id number] Sodium Chloride 0.9% 1, 400 000 ml @ 200 mls/hr IV . Q5H [facility] Rx#:[id number] Output: Urine 1750 2725 Other: Voiding Method Urinal Urinal # Voids 0 - Exam Physical Exam revealed a 28-year-old white male in no distress. Head: Atraumatic, normocephalic. HEENT:[Neck is supple.] [No neck masses.] [No thyromegaly.] [No JVD.] Chest: [Clear throughout, no crackles, no rhonchi, no wheezes.] Cardiac Exam: [Normal S1 and S2, no S3 gallop, no murmur.] Abdomen: [Soft, nontender, no megaly, no rebound, no guarding, normal bowel sounds.] Extremities: [No clubbing, no edema, no cyanosis.] Neurological Exam: [No focal neurologic deficit.] Psychiatric: Normal mood, affect and mental status examination. Skin: No rashes. Lymphatics: No lymphadenopathy. - Labs CBC & Chem 7: 07/30/18 03:12 07/30/18 08:05 Labs: Abnormal Lab Results - Last 24 Hours (Table) 07/29/18 07/30/18 07/30/18 Range/Units 20:03 03:12 03:12 RBC 4.10 L (4.30-5.90) m/uL Hgb 11.7 L D (13.0-17.5) gm/dL Hct 35.0 L (39.0-53.0) % Potassium 3.4 L (3.5-5.1) mmol/L Chloride 110 H (98-107) mmol/L BUN 7 L (9-20) mg/dL Glucose 105 H (74-99) mg/dL POC Glucose (mg/dL) 108 H (75-99) mg/dL Assessment and Plan Assessment: Impression: 1 acute Wellbutrin overdose, nonintentional. 2 acute seizure secondary to Wellbutrin overdose. 3 tobacco dependence syndrome 4 lactic acidosis secondary to seizures 5 remote history of marijuana and methamphetamine abuse. Recommendation: Patient has done extremely well over the last 24 hours in the ICU, I believe the patient could be considered for transfer to a regular medical floor, could even be considered for discharge planning if cleared by neurology and the admitting physician. Patient has been made aware of [place] law that he cannot drive for the next 6 months, and he has to be seizure-free for 6 months. Patient clearly does not need to be on any medicine for seizures at this point, his seizure was mostly induced by Wellbutrin overdose. I have cleared the patient to transfer out of the ICU, and if cleared by neurology, he could be discharged home. Time with Patient: Less than 30
[2018-07-30 16:40] VITALS: BP 122/73; PULSE 89; RESP 17; TEMP 97.8
--- NOTE | 2018-07-30 18:05 | P.DS ---
Providers Date of admission: 07/29/18 06:31 Expected date of discharge: 07/30/18 Attending physician: Pascual Russell Consults: 07/29/18 06:31 Consult Physician Stat Consulting Provider: Landry Ladd Consult Reason/Comments: ICU admit Do you want consulting provider notified?: Already Contacted 07/29/18 12:13 Consult Physician Routine Consulting Provider: Fran Alvares Consult Reason/Comments: seizures, wellbuterin overdose Do you want consulting provider notified?: Yes Primary care physician: Kendra Dempsey Hospital Course: Diagnosis on discharge: #1 seizure activity in U onset, likely related to bupropion overdose #2 Bupropion overdose, unintentional per patient, he thought he was taking Motrin for tooth pain #3 tooth abcess with pain #4 tobacco abuse patient was counseled to quit #5 previous history of marijuana and methamphetamine use in the past #6 tachycardia #7 lactic acidosis #8 leukocytosis Hospital course: Adonis Campbell is a 28-year-old male who was brought in to [facility] emergency room via EMS after having 2 seizures at home. Patient was seen and examined in the emergency room he is lying comfortably in bed, he has seizure precaution pads, he is able to answer questions appropriately however his speech is somewhat muffled. His significant other and his mother are at the bedside and they helped complete the history of the present illness. Apparently patient is having a tooth pain, he went to sleep last night at home, he woke up in the middle of the night complaining of severe pain in his stools, he'll reached for a bottle of medication which he thought was Motrin and took a fistful of pills. Patient started having episodes of vomiting and he was noticed by his girlfriend to have an episode of jerking movements that lasted about 1 minute. She called EMS and before EMS came patient had an alveolar episode of unresponsiveness with jerking movements lasting 1-2 minutes, he was brought into emergency room and apparently he had a third episode in the emergency room, the episode in the ER was described as a tonic-clonic seizure lasting about 30 seconds. In the emergency room patient was evaluated he was given IV Ativan he had evidence of tachycardia he also had QTC prolongation he had elevated white blood count and elevated lactic acid he was started on IV fluid he had episodes of confusion and muffled speech suggestive of post ictal. He also had evidence of tongue biting. On 07/30/2018 patient was seen and examined in the intensive care unit, he is alert and oriented 3 in no distress, no new seizure activity since admission, speech is fluent and is back to normal, patient is eating and is tolerating diet well, labs including kidney function liver function and electrolytes are within normal limits, lactic acid is down to normal at 0.9. Patient is requesting to go home he was evaluated by critical care and was cleared for discharge. Case discussed in detail with patient and his family, he was told to stay with somebody for the next 48 hours and to return to emergency room if having any new symptoms or any new seizure activity, and to follow-up with his primary care physician in the next 1-2 days for reevaluation and laboratory testing. He was counseled of [place] law that prohibits driving for 6 month after any seizure activity. Plan - Discharge Summary New Discharge Prescriptions: New Pantoprazole [Protonix] 40 mg PO AC-BRKFST tablet. Discharge Medication List Pantoprazole [Protonix] 40 mg PO AC-BRKFST tablet. 07/30/18 [Rx] Follow up Appointment(s)/Referral(s): None,Stated [REFERRING] - 1-2 days
== END 2018-07-30 19:15 | disposition home or self-care (01) | DRG 917 ==
LOC: EC 04:47 → MERGE 06:31 → 6ICU 06:31 → 2SICU 07-30 10:40
PROVIDERS: ADMIT Hospitalist; ATTEND Hospitalist
DX: T43.291A Poisoning by other antidepressants, accidental (unintentional), initial encounter (principal); G93.41 Metabolic encephalopathy; E87.2 Acidosis; R56.9 Unspecified convulsions; D72.829 Elevated white blood cell count, unspecified; Z71.6 Tobacco abuse counseling; F17.210 Nicotine dependence, cigarettes, uncomplicated; I45.81 Long QT syndrome; R45.1 Restlessness and agitation; K04.7 Periapical abscess without sinus; W06.XXXA Fall from bed, initial encounter; F15.11 Other stimulant abuse, in remission; F12.11 Cannabis abuse, in remission; R00.0 Tachycardia, unspecified
CPT/HCPCS: 36415; 70450; 70486; 71045; 72125; 80048; 80053; 80306; 80320; 81003; 82550; 82803; 83520; 83605; 83735; 84100; 84132; 84484; 85025; 85610; 85730; 90471; 90715; 93005; 96361; 96374; 96375; 99291

== ENCOUNTER 2019-03-21 20:15 | Emergency (ER) | payer OTHER ==
[2019-03-21] MEDS ORDERED: LIDOCAINE 1% INJ 10MG/ML (20 ML MDV) SQ ONE (20:41)
[2019-03-21] MEDS ORDERED: WATER FOR IRRIG, STERILE 1,000 ML BTL IRRIGATION ONE (20:42)
--- NOTE | 2019-03-21 20:57 | XR ---
EXAMINATION TYPE: XR elbow complete LT DATE OF EXAM: 03/21/2019 COMPARISON: NONE HISTORY: Laceration TECHNIQUE: 3 views FINDINGS: There is soft tissue laceration deformity over the posterior elbow joint. I see no fracture nor dislocation. Joint spaces are normal. There is no sign of joint effusion. IMPRESSION: Laceration deformity. No sign of a foreign body.
[2019-03-21] MEDS ORDERED: CEPHALEXIN 500MG STARTER PACK 4 CAP BTL PO STA (21:20)
--- NOTE | 2019-03-21 21:24 | ED ---
Wound/Laceration HPI - General Source: patient Mode of arrival: ambulatory Limitations: no limitations <Joceline Tay - Last Filed: 03/22/19 00:38> <Brandee Overton - Last Filed: 03/22/19 03:48> - General Chief Complaint: Wound/Laceration Stated Complaint: L Elbow Lac Time Seen by Provider: 03/21/19 20:34 - History of Present Illness Initial Comments: 29-year-old male presenting today for chief complaint of left elbow laceration. Patient states he was messing around with a friend when he swung his elbow back hitting the corner of a wall. Patient states he had a laceration. Patient states he has no limitations at the elbow he he states that he does not feel as broken. He states he came for sutures. Patient states he has had a tetanus within the last 10 years. Patient denies numbness tingling or loss sensation of the extremity. Remaining review of system negative denies any other areas of injury. (Joceline Tay) - Related Data Previous Rx's Medication Instructions Recorded Pantoprazole [Protonix] 40 mg PO AC-BRKFST tablet. 07/30/18 Cephalexin [Keflex] 500 mg PO Q8HR 5 Days #15 cap 03/21/19 Allergies Allergy/AdvReac Type Severity Reaction Status Date / Time No Known Allergies Allergy Verified 03/21/19 20:19 Review of Systems ROS Other: All systems not noted in ROS Statement are negative. <Joceline Tay - Last Filed: 03/22/19 00:38> ROS Other: All systems not noted in ROS Statement are negative. <Brandee Overton - Last Filed: 03/22/19 03:48> ROS Statement: Those systems with pertinent positive or pertinent negative responses have been documented in the HPI. Past Medical History Past Medical History: No Reported History Additional Past Medical History / Comment(s): No previous significant medical illnesses. History of Any Multi-Drug Resistant Organisms: None Reported Past Surgical History: No Surgical Hx Reported Additional Past Surgical History / Comment(s): No previous surgeries. Past Anesthesia/Blood Transfusion Reactions: No Reported Reaction Past Psychological History: No Psychological Hx Reported Smoking Status: Current every day smoker Past Alcohol Use History: Occasional, Rare Past Drug Use History: Marijuana, Methamphetamine <Joceline Tay - Last Filed: 03/22/19 00:38> General Exam Limitations: no limitations <Joceline Tay Michael - Last Filed: 03/22/19 00:38> - General Exam Comments Initial Comments: General: The patient is awake and alert, in no distress, and does not appear acutely ill. Eye: Pupils are equal, round and reactive to light, extra-ocular movements are intact. No nystagmus. There is normal conjunctiva bilaterally. No signs of icterus. Cardiovascular: There is a regular rate and rhythm. No murmur, rub or gallop is appreciated. Respiratory: Lungs are clear to auscultation, respirations are non-labored, breath sounds are equal. No wheezes, stridor, rales, or rhonchi. Musculoskeletal: Normal ROM, no tenderness at elbows bilaterally. Strength 5/5. Sensation intact both proximal distal to injury site. Radial Pulses equal bilaterally 2+. Patient is able to make the okay fingers crossed thumbs-up and extend at the wrist bilaterally. Ulnar median and radial nerve. Intact Neurological: A&O x 3. CN II-XII intact, There are no obvious motor or sensory deficits. Coordination appears grossly intact. Speech is normal. Skin: Skin is warm and dry and no rashes or lesions are noted. 3cm laceration of the left elbow, just proximal to the olecranon process. No evidence of foreign body. No exposure of underlying tissues Psychiatric: Cooperative, appropriate mood & affect, normal judgment. (Joceline aTy) Course Vital Signs 03/21/19 03/21/19 20:16 21:52 Temperature 97.5 F L 98.0 F Pulse Rate 65 67 Respiratory 17 18 Rate Blood Pressure 121/73 125/29 O2 Sat by Pulse 99 98 Oximetry Procedures - Laceration Laceration #1 Consent Obtained: verbal consent Indication: laceration Site: upper extremity Size (cm): 3 Description: linear Depth: simple, single layer Anesthetic Used: lidocaine 1% Anesthesia Technique: local infiltration Amount (mls): 5 Pre-repair: wound explored, irrigated extensively, deep structures intact Type of Sutures: nylon Size of Sutures: 4-0 Number of Sutures: 6 Technique: simple, interrupted Patient Tolerated Procedure: well, no complications <JasvirGeethaJoceline L - Last Filed: 03/22/19 00:38> - Laceration Laceration #1 Additional Comments: Cleansed with iodine and irrigated extensively prior to closure. (Joceline Tay) Medical Decision Making <Joceline Tay - Last Filed: 03/22/19 00:38> <Brandee Overton - Last Filed: 03/22/19 03:48> - Medical Decision Making 29-year-old male presented for left elbow laceration. Imaging studies reveal no evidence of osseous injury. Patient neurovascularly intact. No exposure of underlying structures. Simple interrupted sutures placed. Area was cleansed and irrigated prior to closure. Patient tolerated procedure well. Patient was started on antibiotic, given size and location of injury--near joint. Risk of infection was discussed with patient as well as signs and symptoms. Return parameters including for suture removal were discussed patient with number pleasant or staining. Patient is to have wound check in 2 days with primary care provider. Discussed the case with him provider Dr. Overton who is agreeable care plan discharge. (Joceline Tay) I was available for consultation in the emergency department. The history and physical exam were done by the midlevel provider. I was consulted for this patient's care. I reviewed the case with the midlevel provider and based on their presentation of the patient, I agree with the assessment, medical decision making and plan of care as documented. Chart was dictated using [employer] dictation software. Attempts were made to c orrect any dictation errors however some typographical errors may persist. (Brandee Overton) Disposition Is patient prescribed a controlled substance at d/c from ED?: No Time of Disposition: 21:23 <Joceline Tay - Last Filed: 03/22/19 00:38> <Brandee Overton - Last Filed: 03/22/19 03:48> Clinical Impression: Laceration of left elbow Disposition: HOME SELF-CARE Condition: Good Instructions (If sedation given, give patient instructions): Care For Your Stitches (ED), Laceration (ED) Additional Instructions: Please use medication as discussed. Please follow-up with family doctor in the next 2 days for wound check. Return for suture removal in the 7-10 days. IF there is swelling erythema or inability to range at the elbow return to the ER. Please return to emergency room if the symptoms increase or worsen or for any other concerns. Prescriptions: Cephalexin [Keflex] 500 mg PO Q8HR 5 Days #15 cap Referrals: Kendra Dempsey MD [Primary Care Provider] - 1-2 days
[2019-03-21 21:57] VITALS: BP 125/29; PULSE 67; RESP 18; TEMP 98
== END 2019-03-21 21:57 | disposition home or self-care (01) ==
LOC: EC 20:15
DX: S51.012A Laceration without foreign body of left elbow, initial encounter (principal); F17.200 Nicotine dependence, unspecified, uncomplicated; W22.01XA Walked into wall, initial encounter
CPT/HCPCS: 73080; 99283; 12002; J2001

== ENCOUNTER 2020-02-23 09:36 | Emergency (ER) | payer OTHER ==
[2020-02-23 09:43] VITALS: TEMP 98.1
[2020-02-23] MEDS ORDERED: SODIUM CHLORIDE 0.9% 1,000 ML IV STA (09:53)
[2020-02-23 10:09] LABS: Appearance,Urine Clear (Clear); Bilirubin,Urine Negative (Negative); Blood,Urine Negative (Negative); Color,Urine Yellow; Glucose,Urine (UA) Negative (Negative); Ketones,Urine Negative (Negative); Leukocyte Esterase,Urine Negative (Negative); Nitrite,Urine Negative (Negative); PH, Urine 5.5 (5.0-8.0); Protein,Urine Negative (Negative); Specific Gravity,Urine 1.014 (1.001-1.035); Urobilinogen,Urine <2.0 mg/dL (<2.0)
[2020-02-23 10:18] LABS: HCT 45.2 % (39.0-53.0); HGB 14.8 gm/dL (13.0-17.5); MCHC 32.8 g/dL (31.0-37.0); MCV 88.5 fL (80.0-100.0); Mean Platelet Volume 7.8; Platelet Count 268 k/uL (150-450); RBC 5.11 m/uL (4.30-5.90); RDW 12.2 % (11.5-15.5); WBC 6.2 k/uL (3.8-10.6)
[2020-02-23 10:20] LABS: ALT 33 U/L (4-49); AST 34 U/L (17-59); African American GFR (CKD) >90 (>60 ml/min/1.73 sqM); Albumin 4.4 g/dL (3.5-5.0); Alkaline Phosphatase 95 U/L (38-126); Amylase 96 U/L (30-110); Anion Gap 9 mmol/L; Blood Urea Nitrogen 12 mg/dL (9-20); Calcium 9.5 mg/dL (8.4-10.2); Carbon Dioxide 27 mmol/L (22-30); Chloride 101 mmol/L (98-107); Glucose 96 mg/dL (74-99); Non-African American GFR(CKD) >90 (>60 ml/min/1.73 sqM); Potassium 4.9 mmol/L (3.5-5.1); Sodium 137 mmol/L (137-145); Total Bilirubin 0.2 mg/dL (0.2-1.3); Total Protein 7.3 g/dL (6.3-8.2)
--- NOTE | 2020-02-23 10:39 | ED ---
General Adult HPI - General Chief complaint: Abdominal Pain Stated complaint: abd pain Time Seen by Provider: 02/23/20 09:45 Source: patient, RN notes reviewed, old records reviewed Mode of arrival: ambulatory Limitations: no limitations - History of Present Illness Initial comments: This is a 30-year-old male who presents emergency Department complaining of having intermittent abdominal pain since Tuesday. Patient states on Tuesday morning he was vomiting but hasn't vomited since. Patient states he has had diarrhea almost every day since. Patient states he had abdominal pain Tuesday through had no pain yesterday and the pain returned again today. Patient states he did have diarrhea today. Patient describes his pain is diffusely across his abdomen. Patient denies any fever chills. Patient states he did have exposure to his children on Tuesday that were vomiting and having diarrhea. Patient denies any back pain. Patient denies any dysuria hematuria urinary frequency. Patient denies any previous abdominal surgeries. Patient d enies any medical problems at all. Patient states she does smoke marijuana and has not passed use methamphetamine - Related Data Previous Rx's Medication Instructions Recorded Pantoprazole [Protonix] 40 mg PO AC-BRKFST tablet. 07/30/18 Cephalexin [Keflex] 500 mg PO Q8HR 5 Days #15 cap 03/21/19 Simethicone 80 mg PO TID #9 tab.chew 02/23/20 Allergies Allergy/AdvReac Type Severity Reaction Status Date / Time No Known Allergies Allergy Verified 02/23/20 09:40 Review of Systems ROS Statement: Those systems with pertinent positive or pertinent negative responses have been documented in the HPI. ROS Other: All systems not noted in ROS Statement are negative. Past Medical History Past Medical History: No Reported History Additional Past Medical History / Comment(s): No previous significant medical illnesses. History of Any Multi-Drug Resistant Organisms: None Reported Past Surgical History: No Surgical Hx Reported Additional Past Surgical History / Comment(s): No previous surgeries. Past Anesthesia/Blood Transfusion Reactions: No Reported Reaction Past Psychological History: No Psychological Hx Reported Smoking Status: Current every day smoker Past Alcohol Use History: None Reported, Occasional, Rare Past Drug Use History: Marijuana, Methamphetamine General Exam - General Exam Comments Initial Comments: GENERAL: Patient is well-developed and well-nourished. Patient is nontoxic and well-hyd rated and is in no acute distress. ENT: Neck is soft and supple. No significant lymphadenopathy is noted. Oropharynx is clear. Moist mucous membranes. Neck has full range of motion without elicit ing any pain. EYES: The sclera were anicteric and conjunctiva were pink and moist. Extraocular m ovements were intact and pupils were equal round and reactive to light. Eyelids were unremarkable. PULMONARY: Unlabored respirations. Good breath sounds bilaterally. No audible rales rhonchi or wheezing was noted. CARDIOVASCULAR: There is a regular rate and rhythm without any murmurs gallops or rubs. ABDOMEN: Patient has left lower quadrant tenderness. SKIN: Skin is clear with no lesions or rashes and otherwise unremarkable. NEUROLOGIC: Patient is alert and oriented x3. Cranial nerves II through XII are grossly intact. Motor and sensory are also intact. Normal speech, volume and content. Symmetrical smile. MUSCULOSKELETAL: Normal extremities with adequate strength and full range of motion. No lower extremity swelling or edema. No calf tenderness. LYMPHATICS: No significant lymphadenopathy is noted PSYCHIATRIC: Normal psychiatric evaluation. Limitations: no limitations Course Vital Signs 02/23/20 02/23/20 09:41 10:39 Temperature 98.1 F Pulse Rate 76 81 Respiratory 18 16 Rate Blood Pressure 122/75 132/76 O2 Sat by Pulse 100 99 Oximetry Medical Decision Making - Medical Decision Making I will back into reevaluate the patient he stated that he passed some gas and he is completely back to his baseline. On physical examination of his belly at this point time patient is completely pain-free - Lab Data Result diagrams: 02/23/20 09:50 02/23/20 09:50 Lab Results 02/23/20 02/23/20 02/23/20 Range/Units 09:50 09:50 09:50 WBC 6.2 (3.8-10.6) k/uL RBC 5.11 (4.30-5.90) m/uL Hgb 14.8 (13.0-17.5) gm/dL Hct 45.2 (39.0-53.0) % MCV 88.5 (80.0-100.0) fL MCH 29.0 (25.0-35.0) pg MCHC 32.8 (31.0-37.0) g/dL RDW 12.2 (11.5-15.5) % Plt Count 268 (150-450) k/uL Sodium 137 (137-145) mmol/L Potassium 4.9 (3.5-5.1) mmol/L Chloride 101 (98-107) mmol/L Carbon Dioxide 27 (22-30) mmol/L Anion Gap 9 mmol/L BUN 12 (9-20) mg/dL Creatinine 0.80 (0.66-1.25) mg/dL Est GFR (CKD-EPI)AfAm >90 (>60 ml/min/1.73 sqM) Est GFR (CKD-EPI)NonAf >90 (>60 ml/min/1.73 sqM) Glucose 96 (74-99) mg/dL Calcium 9.5 (8.4-10.2) mg/dL Total Bilirubin 0.2 (0.2-1.3) mg/dL AST 34 (17-59) U/L ALT 33 (4-49) U/L Alkaline Phosphatase 95 (38-126) U/L Total Protein 7.3 (6.3-8.2) g/dL Albumin 4.4 (3.5-5.0) g/dL Amylase 96 (30-110) U/L Lipase 139 (23-300) U/L Urine Color Yellow Urine Appearance Clear (Clear) Urine pH 5.5 (5.0-8.0) Ur Specific [place] 1.014 (1.001-1.035) Urine Protein Negative (Negative) Urine Glucose (UA) Negative (Negative) Urine Ketones Negative (Negative) Urine Blood Negative (Negative) Urine Nitrite Negative (Negative) Urine Bilirubin Negative (Negative) Urine Urobilinogen <2.0 (<2.0) mg/dL Ur Leukocyte Esterase Negative (Negative) Disposition Clinical Impression: Gastroenteritis Disposition: HOME SELF-CARE Condition: Good Instructions (If sedation given, give patient instructions): Gastroenteritis (ED) Prescriptions: Simethicone 80 mg PO TID #9 tab.chew Is patient prescribed a controlled substance at d/c from ED?: No Referrals: None,Stated [Primary Care Provider] - 1-2 days Time of Disposition: 10:46
[2020-02-23 10:41] VITALS: BP 132/76; PULSE 81; RESP 16
[2020-02-23] MEDS ORDERED: SIMETHICONE 80 MG CHEWABLE PO STA (10:43)
[2020-02-23 11:07] LABS: Eosinophils # (M) 0.25 k/uL (0-0.7); Lymphocytes # (M) 2.85 k/uL (1.0-4.8); Monocytes # (M) 0.12 k/uL (0-1.0); Neutrophils # (M) 2.98 k/uL (1.3-7.7); Neutrophils % (M) 48 %; Nucleated Red Blood Cells 0 /100 WBC (0-0); Total Cells Counted 100
[2020-02-23 11:16] LABS: Amphetamine Screen,Urine Not Detected (NotDetected); Barbiturate Screen,Urine Not Detected (NotDetected); Benzodiazepines Screen,Urine Not Detected (NotDetected); Cocaine Screen,Urine Not Detected (NotDetected); Methadone Screen, Urine Not Detected (NotDetected); Opiate Screen,Urine Not Detected (NotDetected); Oxycodone Screen, Urine Not Detected (NotDetected); Phencyclidine Screen,Urine Not Detected (NotDetected); Tricyclic Antidepressant,Urine Not Detected (NotDetected); Urn Cannabinoid Scrn Detected (NotDetected)
== END 2020-02-23 10:58 | disposition home or self-care (01) ==
LOC: EC 09:36
DX: K52.9 Noninfective gastroenteritis and colitis, unspecified (principal); F17.200 Nicotine dependence, unspecified, uncomplicated; F12.90 Cannabis use, unspecified, uncomplicated
CPT/HCPCS: 36415; 80053; 80306; 81003; 82150; 83690; 85025; 96360; 99284